=== PATIENT | male | born 1965 | race American Indian/Alaskan Native ===

== ENCOUNTER 2017-01-18 07:26 | Emergency (ER) | payer SELFPAY ==
[2017-01-18] MEDS ORDERED: Diphtheria,Pertussis(Acell),Tetanus Vaccine 0.5 ML Syringe IM ONE (07:45)
[2017-01-18] MEDS ORDERED: Lidocaine 1% 20 ML MDV INJECT ONE (07:45)
--- NOTE | 2017-01-18 07:47 | EDM.PDOC ---
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 Patient refused x-ray although he has painless range of motion of wrists elbows shoulders Denies head injury or loss of consciousness no fever nausea vomiting chills sweats no chest pain shortness breath headache dizziness palpitation about a urine symptoms ] Review of systems: As per history of present illness and below otherwise all systems reviewed and negative. Past medical history: As per history of present illness and as reviewed below otherwise noncontributory. Surgical history: As per history of present illness and as reviewed below otherwise noncontributory. Social history: No reported history of drug or alcohol abuse. Family history: As per history of present illness and as reviewed below otherwise noncontributory. Physical exam: HEENT: Atraumatic, normocephalic, pupils reactive, negative for conjunctival pallor or scleral icterus, mucous membranes moist, throat clear, neck supple, nontender, trachea midline. Lungs: Clear to auscultation, breath sounds equal bilaterally, chest nontender. Heart: S1S2, regular, negative for clicks, rubs, or JVD. Abdomen: Soft, nondistended, nontender. Negative for masses or hepatosplenomegaly. Negative for costovertebral tenderness. Pelvis: Stable nontender. Genitourinary: Deferred. Rectal: Deferred. Extremities: Atraumatic, negative for cords or calf pain. Neurovascular unremarkable. Neuro: Awake, alert, oriented. Cranial nerves II through XII unremarkable. Cerebellum unremarkable. Motor and sensory unremarkable throughout. Exam nonfocal. 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 - Related Data Allergies Allergy/AdvReac Type Severity Reaction Status Date / Time No Known Allergies Allergy Verified 01/18/17 07:42 Home Meds: Home Meds . [No Known Home Meds] 01/18/17 [History] ED ROS GENERAL - Review of Systems Review Of Systems: ROS reveals no pertinent complaints other than HPI. ED EXAM, SKIN/RASH Exam: See Below Course - Vital Signs Last Recorded V/S: Last Vital Signs Temp 36.1 C 01/18/17 07:42 Pulse 84 01/18/17 07:42 Resp 16 01/18/17 07:42 BP 132/97 H 01/18/17 07:42 Pulse Ox 97 01/18/17 07:42 - Orders/Labs/Meds Orders: Active Orders 24 hr Category Date Time Status Vaccines to be Administered [RC] PER UNIT ROUTINE Care 01/18/17 07:45 Active Meds: Medications Discontinued Medications Generic Name Dose Route Start Last Admin Trade Name Obed PRN Reason Stop Dose Admin Bacitracin 1 dose 01/18/17 08:21 Bacitracin Oint 1 Gm TOP 01/18/17 08:22 ONETIME ONE Diphtheria/Tetanus/Acell Pertussis 0.5 ml 01/18/17 07:45 01/18/17 08:04 Adacel IM 01/18/17 07:46 0.5 ml .ONCE ONE Administration Lidocaine HCl 20 ml 01/18/17 07:45 01/18/17 08:07 Xylocaine 1% INJECT 01/18/17 07:46 20 ml ONETIME ONE Administration Departure - Departure Time of Disposition: 08:24 Disposition: Home, Self-Care 01 Condition: Good Clinical Impression: Laceration - Discharge Information Referrals: PCP,None [Primary Care Provider] - Forms: ED Department Discharge Additional Instructions: Keep wound clean and dry for 48 hours Sutures out in 10 days Bacitracin Telfa Coban dressing changes needed Handout of grease diesel and solvents alert essentially left hand duty Follow-up with occupational health or primary care return for suture removal in 10 days Return if redness warmth or pus drainage should this develop or fever nausea vomiting chills sweats [facility] [address] [place] [id number] The following information is given to patients seen in the emergency department who are being discharged to home. This information is to outline your options for follow-up care. We provide all patients seen in our emergency department with a follow-up referral. The need for follow-up, as well as the timing and circumstances, are variable depending upon the specifics of your emergency department visit. If you don't have a primary care physician on staff, we will provide you with a referral. We always advise you to contact your personal physician following an emergency department visit to inform them of the circumstance of the visit and for follow-up with them and/or the need for any referrals to a consulting specialist. The emergency department will also refer you to a specialist when appropriate. This referral assures that you have the opportunity for follow-up care with a specialist. All of these measure are taken in an effort to provide you with optimal care, which includes your follow-up. Under all circumstances we always encourage you to contact your private physician who remains a resource for coordinating your care. When calling for follow-up care, please make the office aware that this follow-up is from your recent emergency room visit. If for any reason you are refused follow-up, please contact the [facility] emergency department at and asked to speak to the emergency department charge nurse. - My Orders Last 24 Hours: My Active Orders 01/18/17 07:45 Vaccines to be Administered [RC] PER UNIT ROUTINE - Assessment/Plan Last 24 Hours: My Active Orders 01/18/17 07:45 Vaccines to be Administered [RC] PER UNIT ROUTINE
[2017-01-18] MEDS ORDERED: Bacitracin Oint 1 GM U/D Packet TOP ONE (08:21)
== END 2017-01-18 08:48 | disposition home or self-care (01) ==
LOC: MW.ED 07:26
DX: S61.411A Laceration without foreign body of right hand, initial encounter (principal); Z23 Encounter for immunization; W01.0XXA Fall on same level from slipping, tripping and stumbling without subsequent striking against object, initial encounter
CPT/HCPCS: 12001; 90471; 90715; 99282; 99282-25

== ENCOUNTER 2017-10-17 09:05 | Inpatient (IN) | payer SELFPAY ==
--- NOTE | 2017-10-17 09:27 | EDM.PDOC ---
ED HPI GENERAL MEDICAL PROBLEM - General Chief Complaint: Lower Extremity Injury/Pain Stated Complaint: LT LEG SWOLLEN Time Seen by Provider: 10/17/17 09:26 Source of Information: Reports: Patient - History of Present Illness INITIAL COMMENTS - FREE TEXT/NARRATIVE: HISTORY AND PHYSICAL: History of present illness: []Patient presents with left lower extremity pain 8 out of 10 with ambulation has redness and swelling of the calf consistent with a cellulitis he has a history of bumping his leg while working in the yard several days ago now unable to bear weight due to pain No fever nausea vomiting chills sweats Review of systems: As per history of present illness and below otherwise all systems reviewed and negative. Past medical history: As per history of present illness and as reviewed below otherwise noncontributory. Surgical history: As per history of present illness and as reviewed below otherwise noncontributory. Social history: No reported history of drug or alcohol abuse. Family history: As per history of present illness and as reviewed below otherwise noncontributory. Physical exam: HEENT: Atraumatic, normocephalic, pupils reactive, negative for conjunctival pallor or scleral icterus, mucous membranes moist, throat clear, neck supple, nontender, trachea midline. Lungs: Clear to auscultation, breath sounds equal bilaterally, chest nontender. Heart: S1S2, regular, negative for clicks, rubs, or JVD. Abdomen: Soft, nondistended, nontender. Negative for masses or hepatosplenomegaly. Negative for costovertebral tenderness. Pelvis: Stable nontender. Genitourinary: Deferred. Rectal: Deferred. Extremities: Atraumatic, negative for cords or calf pain. Neurovascular unremarkable. Left lower extremityHip knee and ankle joints are unaffected he has redness warmth and pitting edema over the tibia and calf tenderness, skin redness is red and tender extending from the ankle to the knee but does not involve the joints or limb is neurovascularly intact Neuro: Awake, alert, oriented. Cranial nerves II through XII unremarkable. Cerebellum unremarkable. Motor and sensory unremarkable throughout. Exam nonfocal. Skin as per history of present illness otherwise unremarkable Diagnostics: [ CBC CMP and INR blood cultures 2No drainage for culture Tib-fib x-ray ] venous ultrasound left lower extremity Therapeutics: [] Impression: [ cellulitis left lower extremity ] Definitive disposition and diagnosis as appropriate pending reevaluation and review of above. Left Lower Leg Pain Score (Numeric/FACES): 10 - Related Data Allergies Allergy/AdvReac Type Severity Reaction Status Date / Time No Known Allergies Allergy Verified 10/17/17 09:17 Home Meds: Home Meds . [No Known Home Meds] 01/18/17 [History] Past Medical History - Past Health History Medical/Surgical History: Denies Medical/Surgical History Social & Family History - Family History Family Medical History: Noncontributory - Caffeine Use Caffeine Use: Reports: Coffee - Recreational Drug Use Recreational Drug Use: No Review of Systems - Review of Systems Review Of Systems: See Below ED EXAM, GENERAL - Physical Exam Exam: See Below Course - Vital Signs Last Recorded V/S: Last Vital Signs Temp 97.7 F 10/17/17 09:14 Pulse 77 10/17/17 10:19 Resp 18 10/17/17 10:19 BP 162/93 H 10/17/17 10:19 Pulse Ox 96 10/17/17 10:19 - Orders/Labs/Meds Orders: Active Orders 24 hr Category Date Time Status CULTURE BLOOD [BC] Stat Lab 10/17/17 09:25 Ordered CULTURE BLOOD [BC] Stat Lab 10/17/17 09:30 Received INR,PT,PROTHROMBIN TIME [COAG] Stat Lab 10/17/17 09:30 Received Clindamycin Phosphate [Cleocin] 300 mg Med 10/17/17 10:17 Ordered Sodium Chloride 0.9% [Normal Saline] 50 ml IV ONETIME Vancomycin [Vancocin] 1 gm Med 10/17/17 10:17 Ordered Sodium Chloride 0.9% [Normal Saline] 250 ml IV ONETIME Blood Culture x2 Reflex Set [OM.PC] Stat Oth 10/17/17 09:25 Ordered Medication Orders Clindamycin Phosphate 300 mg/ (Sodium Chloride) 52 mls @ 100 mls/hr IV ONETIME ONE Stop: 10/17/17 10:48 Vancomycin HCl 1 gm/ Sodium (Chloride) 250 mls @ 250 mls/hr IV ONETIME ONE Stop: 10/17/17 11:16 Labs: Laboratory Tests 10/17/17 10/17/17 Range/Units 09:30 09:30 WBC 7.29 (4.0-11.0) K/uL RBC 4.93 (4.50-5.90) M/uL Hgb 14.4 (13.0-17.0) g/dL Hct 43.5 (38.0-50.0) % MCV 88.2 (80.0-98.0) fL MCH 29.2 (27.0-32.0) pg MCHC 33.1 (31.0-37.0) g/dL RDW Std Deviation 45.7 (28.0-62.0) fl RDW Coeff of Julianna 14 (11.0-15.0) % Plt Count 274 (150-400) K/uL MPV 9.50 (7.40-12.00) fL Neut % (Auto) 64.5 (48.0-80.0) % Lymph % (Auto) 23.2 (16.0-40.0) % [place] % (Auto) 6.9 (0.0-15.0) % Eos % (Auto) 4.9 (0.0-7.0) % Baso % (Auto) 0.5 (0.0-1.5) % Neut # (Auto) 4.7 (1.4-5.7) K/uL Lymph # (Auto) 1.7 (0.6-2.4) K/uL [place] # (Auto) 0.5 (0.0-0.8) K/uL Eos # (Auto) 0.4 (0.0-0.7) K/uL Baso # (Auto) 0.0 (0.0-0.1) K/uL Nucleated RBC % 0.0 /100WBC Nucleated RBCs # 0 K/uL Sodium 139 (136-148) mmol/L Potassium 3.9 (3.5-5.1) mmol/L Chloride 103 (98-107) mmol/L Carbon Dioxide 29.7 (21.0-32.0) mmol/L BUN 11 (7.0-18.0) mg/dL Creatinine 1.0 (0.8-1.3) mg/dL Est Cr Clr Drug Dosing 80.79 mL/min Estimated GFR (MDRD) > 60.0 ml/min Glucose 187 H (74-106) mg/dL Calcium 8.9 (8.5-10.1) mg/dL Total Bilirubin 0.2 (0.2-1.0) mg/dL AST 17 (15-37) IU/L ALT 51 (14-63) IU/L Alkaline Phosphatase 109 (46-116) U/L Total Protein 7.5 (6.4-8.2) g/dL Albumin 3.2 L (3.4-5.0) g/dL Globulin 4.3 H (2.0-3.5) g/dL Albumin/Globulin Ratio 0.7 L (1.3-2.8) Meds: Medications Generic Name Dose Route Start Last Admin Trade Name Freq PRN Reason Stop Dose Admin Clindamycin Phosphate 300 mg/ 52 mls @ 100 mls/hr 10/17/17 10:17 Sodium Chloride IV 10/17/17 10:48 ONETIME ONE Vancomycin HCl 1 gm/ Sodium 250 mls @ 250 mls/hr 10/17/17 10:17 Chloride IV 10/17/17 11:16 ONETIME ONE Departure - Departure Time of Disposition: 10:22 Disposition: Admitted As Inpatient 65 Condition: Fair Clinical Impression: Cellulitis - Discharge Information Referrals: PCP,None [Primary Care Provider] - Forms: ED Department Discharge - My Orders Last 24 Hours: My Active Orders 10/17/17 09:25 CULTURE BLOOD [BC] Stat Blood Culture x2 Reflex Set [OM.PC] Stat 10/17/17 09:30 CULTURE BLOOD [BC] Stat INR,PT,PROTHROMBIN TIME [COAG] Stat 10/17/17 10:17 Clindamycin Phosphate [Cleocin] 300 mg Sodium Chloride 0.9% [Normal Saline] 50 ml IV ONETIME Vancomycin [Vancocin] 1 gm Sodium Chloride 0.9% [Normal Saline] 250 ml IV ONETIME - Assessment/Plan Last 24 Hours: My Active Orders 10/17/17 09:25 CULTURE BLOOD [BC] Stat Blood Culture x2 Reflex Set [OM.PC] Stat 10/17/17 09:30 CULTURE BLOOD [BC] Stat INR,PT,PROTHROMBIN TIME [COAG] Stat 10/17/17 10:17 Clindamycin Phosphate [Cleocin] 300 mg Sodium Chloride 0.9% [Normal Saline] 50 ml IV ONETIME Vancomycin [Vancocin] 1 gm Sodium Chloride 0.9% [Normal Saline] 250 ml IV ONETIME
--- NOTE | 2017-10-17 10:02 | US ---
ULTRASOUND EXAMINATION OF the left lower extremity WITH DOPPLER HISTORY: Pain FINDINGS: Examination of the left leg was performed from the groin to the calf region. All visualized segments including common femoral, proximal greater saphenous, superficial femoral, popliteal and calf veins appear patent with good compressibility and augmentation. There is no evidence of deep vein thrombos is. Mildly prominent, likely reactive, left inguinal lymph nodes noted. IMPRESSION: No evidence of a DVT.
[2017-10-17 10:04] LABS: CHLORIDE,CL 103 mmol/L (98-107); SODIUM,NA 139 mmol/L (136-148)
--- NOTE | 2017-10-17 10:14 | CR ---
EXAMINATION: Left tibia and fibula HISTORY: Pain COMPARISON: None TECHNIQUE: AP and lateral views FINDINGS: There is no acute osseous abnormality, dislocation, or fracture. Bone mineralization and bret int spaces appear preserved. Mild osteophyte formation within the left knee. Mild generalized soft ti ssue swelling without evidence of subcutaneous gas. IMPRESSION: Generalized soft tissue swelling without an acute osseous abnormality.
[2017-10-17] MEDS ORDERED: Clindamycin Phosphate in D5W 50 ML IV ONE (10:24)
[2017-10-17] MEDS ORDERED: Clindamycin Phosphate 300 MG in Dextrose 5% in Water 50 ML IV ONE ×2 (10:25)
[2017-10-17] MEDS: Sodium Chloride 0.9% 1,000 ML IV SCH (10:40)
[2017-10-17] MEDS ORDERED: Acetaminophen 325 MG Tab PO PRN (11:23)
[2017-10-17] MEDS ORDERED: Diphtheria,Pertussis(Acell),Tetanus Vaccine 0.5 ML Syringe IM ONE (14:31)
--- NOTE | 2017-10-17 14:32 | PCM.HP ---
H&P History of Present Illness - General Date of Service: 10/17/17 Admit Problem/Dx: Admission Diagnosis/Problem Admission Diagnosis/Problem Cellulitis Patient 51 years old woman presented to hospital because of redness and swelling and pain of the left lower extremities plantar and left calf pain after he accidentally hurt himself with a metal marcellus at work the day before. Patient drinks alcohol,4- 5 beers a day 4-7 days in a week, after he comes home from work. Source of Information: Patient - History of Present Illness Onset of Symptoms: Reports: Today Duration of Symptoms: Reports: Hour(s): Location: Reports: Lower Extremity, Left Quality: Reports: Ache Left Lower Leg Pain Score (Numeric/FACES): 10 - Related Data Allergies/Adverse Reactions: Allergies Allergy/AdvReac Type Severity Reaction Status Date / Time No Known Allergies Allergy Verified 10/17/17 09:17 Home Medications: Home Meds . [No Known Home Meds] 01/18/17 [History] Past Medical History - Past Health History Medical/Surgical History: Denies Medical/Surgical History Dermatologic History: Reports: Cellulitis Social & Family History - Family History Family Medical History: Noncontributory - Tobacco Use Smoking Status *Q: Never Smoker Second Hand Smoke Exposure: No - Caffeine Use Caffeine Use: Reports: Coffee - Alcohol Use Days Per Week of Alcohol Use: 5 Number of Drinks Per Day: 2 Total Drinks Per Week: 10 Date of Last Drink: 10/09/17 - Recreational Drug Use Recreational Drug Use: No H&P Review of Systems - Review of Systems: Review Of Systems: See Below General: Reports: No Symptoms HEENT: Reports: No Symptoms Pulmonary: Reports: No Symptoms Cardiovascular: Reports: No Symptoms Gastrointestinal: Reports: Distension Genitourinary: Reports: No Symptoms Musculoskeletal: Reports: No Symptoms Skin: Reports: No Symptoms Exam - Exam Exam: See Below - Vital Signs Vital Signs: Last Vital Signs Temp 99.4 F 10/17/17 11:23 Pulse 72 10/17/17 11:23 Resp 18 10/17/17 11:23 BP 159/87 H 10/17/17 11:23 Pulse Ox 97 10/17/17 11:23 Weight: 291 lb 1 oz - Exam General: Alert, Oriented HEENT: Conjunctiva Clear, EACs Clear Neck: Supple, Trachea Midline Lungs: Clear to Auscultation, Normal Respiratory Effort Cardiovascular: Regular Rate, Regular Rhythm, Normal S1, Normal S2 GI/Abdominal Exam: Soft, Non-Tender, No Organomegaly, No Mass, Distended, Hernia (umbilical) Back Exam: Normal Inspection Extremities: Normal Inspection Skin: Warm, Other (skin erythema left lower extremity) Neurological: Cranial Nerves Intact Neuro Extensive - Mental Status: Alert, Oriented x3 Neuro Extensive - Motor, Sensory, Reflexes: CN II-XII Intact - Patient Data Lab Results Last 24 hrs: Laboratory Results - last 24 hr 10/17/17 10/17/17 10/17/17 Range/Units 09:30 09:30 09:30 WBC 7.29 (4.0-11.0) K/uL RBC 4.93 (4.50-5.90) M/uL Hgb 14.4 (13.0-17.0) g/dL Hct 43.5 (38.0-50.0) % MCV 88.2 (80.0-98.0) fL MCH 29.2 (27.0-32.0) pg MCHC 33.1 (31.0-37.0) g/dL RDW Std Deviation 45.7 (28.0-62.0) fl RDW Coeff of Julianna 14 (11.0-15.0) % Plt Count 274 (150-400) K/uL MPV 9.50 (7.40-12.00) fL Neut % (Auto) 64.5 (48.0-80.0) % Lymph % (Auto) 23.2 (16.0-40.0) % [place] % (Auto) 6.9 (0.0-15.0) % Eos % (Auto) 4.9 (0.0-7.0) % Baso % (Auto) 0.5 (0.0-1.5) % Neut # (Auto) 4.7 (1.4-5.7) K/uL Lymph # (Auto) 1.7 (0.6-2.4) K/uL [place] # (Auto) 0.5 (0.0-0.8) K/uL Eos # (Auto) 0.4 (0.0-0.7) K/uL Baso # (Auto) 0.0 (0.0-0.1) K/uL Nucleated RBC % 0.0 /100WBC Nucleated RBCs # 0 K/uL INR 0.95 Sodium 139 (136-148) mmol/L Potassium 3.9 (3.5-5.1) mmol/L Chloride 103 (98-107) mmol/L Carbon Dioxide 29.7 (21.0-32.0) mmol/L BUN 11 (7.0-18.0) mg/dL Creatinine 1.0 (0.8-1.3) mg/dL Est Cr Clr Drug Dosing 80.79 mL/min Estimated GFR (MDRD) > 60.0 ml/min Glucose 187 H (74-106) mg/dL Calcium 8.9 (8.5-10.1) mg/dL Total Bilirubin 0.2 (0.2-1.0) mg/dL AST 17 (15-37) IU/L ALT 51 (14-63) IU/L Alkaline Phosphatase 109 (46-116) U/L Total Protein 7.5 (6.4-8.2) g/dL Albumin 3.2 L (3.4-5.0) g/dL Globulin 4.3 H (2.0-3.5) g/dL Albumin/Globulin Ratio 0.7 L (1.3-2.8) Result Diagrams: 10/17/17 09:30 10/17/17 09:30 - Problem List (1) Skin abrasion SNOMED Code(s): 714760290, 196871357, 228738849 ICD Code: T14.8XXA - OTHER INJURY OF UNSPECIFIED BODY REGION, INITIAL ENCOUNTER Status: Acute Current Visit: Yes (2) Cellulitis SNOMED Code(s): 565071409 ICD Code: L03.90 - CELLULITIS, UNSPECIFIED Status: Acute Current Visit: Yes (3) Alcohol abuse SNOMED Code(s): 31437226 ICD Code: F10.10 - ALCOHOL ABUSE, UNCOMPLICATED Status: Acute Current Visit: Yes (4) Distended abdomen SNOMED Code(s): 48213413 ICD Code: R14.0 - ABDOMINAL DISTENSION (GASEOUS) Status: Acute Current Visit: Yes (5) Umbilical hernia SNOMED Code(s): 163544654 ICD Code: K42.9 - UMBILICAL HERNIA WITHOUT OBSTRUCTION OR GANGRENE Status: Acute Current Visit: Yes (6) Morbid obesity with BMI of 45.0-49.9, adult SNOMED Code(s): 175223377 ICD Code: E66.01 - MORBID (SEVERE) OBESITY DUE TO EXCESS CALORIES; Z68.42 - BODY MASS INDEX (BMI) 45.0-49.9, ADULT Status: Acute Current Visit: Yes Problem List Initiated/Reviewed/Updated: Yes Orders Last 24hrs: Active Orders 24 hr Category Date Time Status Admission Status [Patient Status] [ADT] Stat ADT 10/17/17 10:23 Active Up ad Trina [RC] ASDIRECTED Care 10/17/17 11:23 Active VTE/DVT Education [RC] PER UNIT ROUTINE Care 10/17/17 11:23 Active Vaccines to be Administered [RC] PER UNIT ROUTINE Care 10/17/17 14:32 Active Vital Signs [RC] Q4H Care 10/17/17 11:23 Active Heart Healthy Diet [DIET] Diet 10/17/17 Lunch Active Abdomen Comp [US] Routine Exams 10/17/17 14:31 Ordered B-TYPE NATRIURETIC PEPTIDE,BNP [CHEM] Routine Lab 10/17/17 14:30 Ordered BASIC METABOLIC PANEL,BMP [CHEM] AM Lab 10/18/17 05:11 Ordered CBC WITH AUTO DIFF [HEME] AM Lab 10/18/17 05:11 Ordered CULTURE BLOOD [BC] Stat Lab 10/17/17 09:30 Received CULTURE BLOOD [BC] Stat Lab 10/17/17 10:15 Received VANCOMYCIN TROUGH [CHEM] Timed Lab 10/19/17 09:30 Ordered Acetaminophen [Tylenol] Med 10/17/17 11:23 Active 650 mg PO Q4H PRN Acetaminophen/HYDROcodone [[place] 325-7.5 MG] Med 10/17/17 12:42 Active 1 tab PO Q4H PRN Diphth,Pertuss(Acell),Tet Vac [Adacel] Med 10/17/17 14:31 Once 0.5 ml IM .ONCE ONE Piperacillin/Tazobactam [Piperacil-Tazobact] 4.5 gm Med 10/17/17 13:45 Active Sodium Chloride 0.9% [Normal Saline] 100 ml IV Q6H Sodium Chloride 0.9% [Normal Saline] 1,000 ml Med 10/17/17 10:30 Active IV STAT Vancomycin 2,000 mg Med 10/17/17 21:00 Active Sodium Chloride 0.9% [Normal Saline] 500 ml IV Q12H Vancomycin Pharmacy to Dose [Pharmacy to Dose - Med 10/17/17 11:30 Active Vancomycin] See Dose Instructions .XX ASDIRECTED Blood Culture x2 Reflex Set [OM.PC] Stat Oth 10/17/17 09:25 Ordered Sequential Compression Device [OM.PC] Per Unit Routine Oth 10/17/17 11:26 Ordered Resuscitation Status Routine Resus Stat 10/17/17 11:23 Ordered Medication Orders Acetaminophen (Tylenol) 650 mg PO Q4H PRN PRN Reason: Pain (Mild 1-3)/fever Last Admin: 10/17/17 12:05 Dose: 650 mg Hydrocodone Bitart/Acetaminophen ([place] 325-7.5 Mg) 1 tab PO Q4H PRN PRN Reason: Pain Diphtheria/Tetanus/Acell Pertussis (Adacel) 0.5 ml IM .ONCE ONE Stop: 10/17/17 14:32 Sodium Chloride (Normal Saline) 1,000 mls @ 125 mls/hr IV STAT ARELY Last Admin: 10/17/17 10:40 Dose: 125 mls/hr Vancomycin HCl 2,000 mg/ (Sodium Chloride) 500 mls @ 250 mls/hr IV Q12H ARELY Piperacillin Sod/Tazobactam (Sod 4.5 gm/ Sodium Chloride) 100 mls @ 100 mls/hr IV Q6H ARELY Vancomycin HCl (Pharmacy To Dose - Vancomycin) 0 dose .XX ASDIRECTED ARELY Assessment/Plan Comment:: will admit patient to observation will start patient onIv fluids , Vancomycin pharmacy to dose and Zosyn 4.5 g every 6 hours. We will follow-up blood cultures. will give patient Tdap vaccine for alcohol abuse will put patient in telemetry and put patient on CIWA protocol Thiamine 100 mg by mouth daily and folic acid 0.4 mg by mouth daily for abdomen distention and alcohol abuse will order abdominal ultrasound Alcohol abuse - patient was counseled for more than 5 min to stop drinking alcohol Morbid obesity - patient counseled to loose weight
[2017-10-17] MEDS: Piperacillin/Tazobactam 4.5 GM in Sodium Chloride 0.9% 100 ML IV SCH ×2 (15:18→22:26)
[2017-10-17] MEDS: Acetaminophen/HYDROcodone 325-7.5 MG Tab PO PRN (15:21)
[2017-10-17] MEDS ORDERED: LORazepam 2 MG/ML SDV IVPUSH PRN (18:13)
[2017-10-18] MEDS: Sodium Chloride 0.9% 1,000 ML IV SCH ×2 (02:20→15:28)
[2017-10-18] MEDS: Piperacillin/Tazobactam 4.5 GM in Sodium Chloride 0.9% 100 ML IV SCH ×4 (02:21→20:00)
[2017-10-18 06:41] LABS: CHLORIDE,CL 101 mmol/L (98-107); SODIUM,NA 136 mmol/L (136-148)
[2017-10-18] MEDS: Acetaminophen/HYDROcodone 325-7.5 MG Tab PO PRN (15:34)
--- NOTE | 2017-10-18 16:13 | PCM.PN ---
- General Info Date of Service: 10/18/17 Admission Dx/Problem (Free Text): has improved right lower extremity erythema and decreased swelling Functional Status: Reports: Pain Controlled - Review of Systems General: Reports: No Symptoms Pulmonary: Reports: No Symptoms Cardiovascular: Reports: No Symptoms Gastrointestinal: Reports: No Symptoms Genitourinary: Reports: No Symptoms Musculoskeletal: Reports: No Symptoms Skin: Reports: No Symptoms, Other (erythema , fading , less intense color below the knee) Neurological: Reports: No Symptoms Psychiatric: Reports: No Symptoms - Patient Data Vitals - Most Recent: Last Vital Signs Temp 99.6 F 10/18/17 12:00 Pulse 83 10/18/17 12:00 Resp 18 10/18/17 12:00 BP 168/82 H 10/18/17 12:00 Pulse Ox 94 L 10/18/17 12:00 Weight - Most Recent: 291 lb 1 oz I&O - Last 24 Hours: Intake & Output 10/18/17 10/18/17 10/18/17 06:59 14:59 22:59 Intake Total 4629 Output Total 1999 Balance 2629 Lab Results Last 24 Hours: Laboratory Results - last 24 hr 10/18/17 10/18/17 Range/Units 06:15 06:15 WBC 8.44 (4.0-11.0) K/uL RBC 5.04 (4.50-5.90) M/uL Hgb 14.7 (13.0-17.0) g/dL Hct 44.7 (38.0-50.0) % MCV 88.7 (80.0-98.0) fL MCH 29.2 (27.0-32.0) pg MCHC 32.9 (31.0-37.0) g/dL RDW Std Deviation 46.3 (28.0-62.0) fl RDW Coeff of Julianna 14 (11.0-15.0) % Plt Count 266 (150-400) K/uL MPV 9.70 (7.40-12.00) fL Neut % (Auto) 65.6 (48.0-80.0) % Lymph % (Auto) 25.2 (16.0-40.0) % Irion % (Auto) 4.5 (0.0-15.0) % Eos % (Auto) 4.3 (0.0-7.0) % Baso % (Auto) 0.4 (0.0-1.5) % Neut # (Auto) 5.5 (1.4-5.7) K/uL Lymph # (Auto) 2.1 (0.6-2.4) K/uL Irion # (Auto) 0.4 (0.0-0.8) K/uL Eos # (Auto) 0.4 (0.0-0.7) K/uL Baso # (Auto) 0.0 (0.0-0.1) K/uL Nucleated RBC % 0.0 /100WBC Nucleated RBCs # 0 K/uL Sodium 136 (136-148) mmol/L Potassium 4.6 (3.5-5.1) mmol/L Chloride 101 (98-107) mmol/L Carbon Dioxide 31.5 (21.0-32.0) mmol/L BUN 13 (7.0-18.0) mg/dL Creatinine 1.2 (0.8-1.3) mg/dL Est Cr Clr Drug Dosing 67.32 mL/min Estimated GFR (MDRD) > 60.0 ml/min Glucose 161 H (74-106) mg/dL Calcium 9.6 (8.5-10.1) mg/dL Dionicio Results Last 24 Hours: Microbiology 10/17/17 10:15 Aerobic Blood Culture - Preliminary Blood - Venous - Lab Draw NO GROWTH AFTER 1 DAY Anaerobic Blood Culture - Preliminary NO GROWTH AFTER 1 DAY 10/17/17 09:30 Aerobic Blood Culture - Preliminary Blood - Venous NO GROWTH AFTER 1 DAY Anaerobic Blood Culture - Preliminary NO GROWTH AFTER 1 DAY Med Orders - Current: Current Medications Acetaminophen (Tylenol) 650 mg PO Q4H PRN PRN Reason: Pain (Mild 1-3)/fever Last Admin: 10/17/17 12:05 Dose: 650 mg Hydrocodone Bitart/Acetaminophen ([place] 325-7.5 Mg) 1 tab PO Q4H PRN PRN Reason: Pain Last Admin: 10/18/17 15:34 Dose: 1 tab Sodium Chloride (Normal Saline) 1,000 mls @ 125 mls/hr IV STAT [facility] Last Admin: 10/18/17 15:28 Dose: 125 mls/hr Vancomycin HCl 2,000 mg/ (Sodium Chloride) 500 mls @ 250 mls/hr IV Q12H [facility] Last Admin: 10/18/17 06:55 Dose: 250 mls/hr Piperacillin Sod/Tazobactam (Sod 4.5 gm/ Sodium Chloride) 100 mls @ 100 mls/hr IV Q6H [facility] Last Admin: 10/18/17 12:52 Dose: 100 mls/hr Lorazepam (Ativan) 0 mg IVPUSH Q4H PRN; Protocol PRN Reason: anxiety , agitation Vancomycin HCl (Pharmacy To Dose - Vancomycin) 0 dose .XX ASDIRECTED [facility] Discontinued Medications Diphtheria/Tetanus/Acell Pertussis (Adacel) 0.5 ml IM .ONCE ONE Stop: 10/17/17 14:32 Last Admin: 10/17/17 17:52 Dose: 0.5 ml Clindamycin Phosphate 300 mg/ (Sodium Chloride) 52 mls @ 100 mls/hr IV ONETIME ONE Stop: 10/17/17 10:48 Last Admin: 10/17/17 10:50 Dose: Not Given Vancomycin HCl 1 gm/ Sodium (Chloride) 250 mls @ 250 mls/hr IV ONETIME ONE Stop: 10/17/17 11:16 Last Admin: 10/17/17 10:41 Dose: 250 mls/hr Clindamycin Phosphate 300 mg/ (Dextrose/Water) 52 mls @ 100 mls/hr IV ONETIME ONE Stop: 10/17/17 10:48 Last Admin: 10/17/17 11:50 Dose: 100 mls/hr Clindamycin Phosphate (Cleocin In D5w) Confirm Administered Dose 50 mls @ as directed IV .STK-MED ONE Stop: 10/17/17 10:25 Last Admin: 10/17/17 10:50 Dose: Not Given - Exam General: Alert, Oriented HEENT: Pupils Equal, Pupils Reactive Neck: Supple, Trachea Midline Lungs: Clear to Auscultation, Normal Respiratory Effort Cardiovascular: Regular Rate, Regular Rhythm, No Murmurs GI/Abdominal Exam: Normal Bowel Sounds, Soft, Non-Tender, No Organomegaly Back Exam: Normal Inspection Extremities: Pedal Edema, Redness (rt lower extremity) - Problem List & Annotations (1) Skin abrasion SNOMED Code(s): 678418914, 170665699, 206151648 Code(s): T14.8XXA - OTHER INJURY OF UNSPECIFIED BODY REGION, INITIAL ENCOUNTER Status: Acute Current Visit: Yes (2) Cellulitis SNOMED Code(s): 654953082 Code(s): L03.90 - CELLULITIS, UNSPECIFIED Status: Acute Current Visit: Yes Qualifiers: Site of cellulitis: extremity Site of cellulitis of extremity: lower extremity Laterality: left Qualified Code(s): L03.116 - Cellulitis of left lower limb (3) Alcohol abuse SNOMED Code(s): 74176756 Code(s): F10.10 - ALCOHOL ABUSE, UNCOMPLICATED Status: Acute Current Visit: Yes (4) Distended abdomen SNOMED Code(s): 27961707 Code(s): R14.0 - ABDOMINAL DISTENSION (GASEOUS) Status: Acute Current Visit: Yes (5) Umbilical hernia SNOMED Code(s): 212766681 Code(s): K42.9 - UMBILICAL HERNIA WITHOUT OBSTRUCTION OR GANGRENE Status: Acute Current Visit: Yes (6) Morbid obesity with BMI of 45.0-49.9, adult SNOMED Code(s): 983446141 Code(s): E66.01 - MORBID (SEVERE) OBESITY DUE TO EXCESS CALORIES; Z68.42 - BODY MASS INDEX (BMI) 45.0-49.9, ADULT Status: Acute Current Visit: Yes - Problem List Review Problem List Initiated/Reviewed/Updated: Yes - My Orders Last 24 Hours: My Active Orders 10/17/17 18:00 Vancomycin 2,000 mg Sodium Chloride 0.9% [Normal Saline] 500 ml IV Q12H 10/17/17 18:12 Telemetry Monitoring [Cardiac Monitoring] [RC] . DIRECTED 10/17/17 18:13 LORazepam [Ativan] See Protocol IVPUSH Q4H PRN 10/17/17 18:14 CIWAA Assessment [RC] Q4H 10/19/17 09:30 VANCOMYCIN TROUGH [CHEM] Timed - Plan Plan:: Continue onIv fluids , Vancomycin pharmacy to dose and Zosyn 4.5 g every 6 hours. blood cultures negative day 1 . for alcohol abuse will put patient in telemetry and put patient on CIWA protocol Thiamine 100 mg by mouth daily and folic acid 0.4 mg by mouth daily for abdomen distention and alcohol abuse will order abdominal ultrasound Alcohol abuse - patient was counseled for more than 5 min to stop drinking alcohol Morbid obesity - patient counseled to loose weight
[2017-10-18] MEDS ORDERED: Folic Acid 1 MG Tab PO SCH (21:00)
[2017-10-18] MEDS ORDERED: Thiamine 100 MG Tab PO SCH (21:00)
[2017-10-19] MEDS ORDERED: Sodium Chloride 0.9% 100 ML ONE (01:17)
[2017-10-19] MEDS: Piperacillin/Tazobactam 4.5 GM in Sodium Chloride 0.9% 100 ML IV SCH ×3 (02:45→12:52)
[2017-10-19 06:57] LABS: CHLORIDE,CL 100 mmol/L (98-107); SODIUM,NA 134 mmol/L (136-148)
[2017-10-19] MEDS ORDERED: Insulin Aspart 100 Units/ML 3 ML Pen SUBCUT SCH (11:30)
--- NOTE | 2017-10-19 11:33 | PCM.DCSUM1 ---
Discharge Summary - Hospital Course Diagnosis: Stroke: No - Discharge Data Discharge Disposition: Home, Self-Care 01 Condition: Fair - Discharge Diagnosis/Problem(s) (1) Skin abrasion SNOMED Code(s): 536601427, 062248312, 778539333 ICD Code: T14.8XXA - OTHER INJURY OF UNSPECIFIED BODY REGION, INITIAL ENCOUNTER Status: Acute Current Visit: Yes (2) Cellulitis SNOMED Code(s): 404455045 ICD Code: L03.90 - CELLULITIS, UNSPECIFIED Status: Acute Current Visit: Yes Qualifiers: Site of cellulitis: extremity Site of cellulitis of extremity: lower extremity Laterality: left Qualified Code(s): L03.116 - Cellulitis of left lower limb (3) Alcohol abuse SNOMED Code(s): 42326543 ICD Code: F10.10 - ALCOHOL ABUSE, UNCOMPLICATED Status: Acute Current Visit: Yes (4) Distended abdomen SNOMED Code(s): 42065354 ICD Code: R14.0 - ABDOMINAL DISTENSION (GASEOUS) Status: Acute Current Visit: Yes (5) Umbilical hernia SNOMED Code(s): 580972619 ICD Code: K42.9 - UMBILICAL HERNIA WITHOUT OBSTRUCTION OR GANGRENE Status: Acute Current Visit: Yes (6) Morbid obesity with BMI of 45.0-49.9, adult SNOMED Code(s): 007059803 ICD Code: E66.01 - MORBID (SEVERE) OBESITY DUE TO EXCESS CALORIES; Z68.42 - BODY MASS INDEX (BMI) 45.0-49.9, ADULT Status: Acute Current Visit: Yes (7) Diabetes mellitus SNOMED Code(s): 61183015 ICD Code: E11.9 - TYPE 2 DIABETES MELLITUS WITHOUT COMPLICATIONS Status: Acute Current Visit: Yes Qualifiers: Diabetes mellitus type: type 2 (8) Hepatic steatosis SNOMED Code(s): 814746763 ICD Code: K76.0 - FATTY (CHANGE OF) LIVER, NOT ELSEWHERE CLASSIFIED Status : Acute Current Visit: Yes (9) Hypertension SNOMED Code(s): 51994279 ICD Code: I10 - ESSENTIAL (PRIMARY) HYPERTENSION Status: Acute Current Visit: Yes Qualifiers: Hypertension type: essential hypertension Qualified Code(s): I10 - Essential (primary) hypertension - Patient Instructions Diet: Diabetic Diet Driving: May Drive Today Showering/Bathing: May Shower Other/Special Instructions: stop drinking , check your cholesterol , you have fatty liver , f/up with pCP - Discharge Plan Prescriptions/Med Rec: Lisinopril/Hydrochlorothiazide [Lisinopril-HCTZ 10-12.5 MG] 1 tab PO DAILY #60 tablet metFORMIN HCl [Metformin HCl ER] 500 mg PO DAILY #30 tab.er.24 Sulfamethoxazole/Trimethoprim [Bactrim Ds Tablet] 1 each PO BID #20 tablet Home Medications: Home Meds Lisinopril/Hydrochlorothiazide [Lisinopril-HCTZ 10-12.5 MG] 1 tab PO DAILY #60 tablet 10/19/17 [Rx] Sulfamethoxazole/Trimethoprim [Bactrim Ds Tablet] 1 each PO BID #20 tablet 10/19 [Rx] metFORMIN HCl [Metformin HCl ER] 500 mg PO DAILY #30 tab.er.24 10/19/17 [Rx] Patient Handouts: Cellulitis, Adult, Jyuk-wf-Weyo, Type 2 Diabetes Mellitus, Self Care, Adult, Gnvx-lh-[id number], Sulfamethoxazole; Trimethoprim, SMX-TMP tablets , Metronidazole tablets or capsules, Diabetes Mellitus and Nutrition - Patient Data Vitals - Most Recent: Last Vital Signs Temp 97.5 F 10/19/17 08:00 Pulse 80 10/19/17 08:00 Resp 17 10/19/17 08:00 BP 143/111 H 10/19/17 08:00 Pulse Ox 95 10/19/17 08:00 Weight - Most Recent: 291 lb 1 oz I&O - Last 24 hours: Intake & Output 10/18/17 10/19/17 10/19/17 22:59 06:59 14:59 Intake Total 1150 1300 Output Total 700 Balance 450 1300 Lab Results - Last 24 hrs: Laboratory Results - last 24 hr 10/19/17 10/19/17 10/19/17 Range/Units 06:10 06:10 06:10 WBC 8.57 (4.0-11.0) K/uL RBC 5.00 (4.50-5.90) M/uL Hgb 14.4 (13.0-17.0) g/dL Hct 44.0 (38.0-50.0) % MCV 88.0 (80.0-98.0) fL MCH 28.8 (27.0-32.0) pg MCHC 32.7 (31.0-37.0) g/dL RDW Std Deviation 45.6 (28.0-62.0) fl RDW Coeff of Julianna 14 (11.0-15.0) % Plt Count 265 (150-400) K/uL MPV 9.90 (7.40-12.00) fL Nucleated RBC % 0.0 /100WBC Nucleated RBCs # 0 K/uL Sodium 134 L (136-148) mmol/L Potassium 4.4 (3.5-5.1) mmol/L Chloride 100 (98-107) mmol/L Carbon Dioxide 29.6 (21.0-32.0) mmol/L BUN 14 (7.0-18.0) mg/dL Creatinine 1.2 (0.8-1.3) mg/dL Est Cr Clr Drug Dosing 67.32 mL/min Estimated GFR (MDRD) > 60.0 ml/min Glucose 238 H (74-106) mg/dL POC Glucose (60-110) mg/dL Hemoglobin A1c 7.8 H (4.5-6.2) % Calcium 9.4 (8.5-10.1) mg/dL Total Bilirubin 0.4 (0.2-1.0) mg/dL AST 16 (15-37) IU/L ALT 48 (14-63) IU/L Alkaline Phosphatase 93 (46-116) U/L Total Protein 7.4 (6.4-8.2) g/dL Albumin 3.2 L (3.4-5.0) g/dL Globulin 4.2 H (2.0-3.5) g/dL Albumin/Globulin Ratio 0.8 L (1.3-2.8) 10/19/17 Range/Units 11:22 WBC (4.0-11.0) K/uL RBC (4.50-5.90) M/uL Hgb (13.0-17.0) g/dL Hct (38.0-50.0) % MCV (80.0-98.0) fL MCH (27.0-32.0) pg MCHC (31.0-37.0) g/dL RDW Std Deviation (28.0-62.0) fl RDW Coeff of Julianna (11.0-15.0) % Plt Count (150-400) K/uL MPV (7.40-12.00) fL Nucleated RBC % /100WBC Nucleated RBCs # K/uL Sodium (136-148) mmol/L Potassium (3.5-5.1) mmol/L Chloride (98-107) mmol/L Carbon Dioxide (21.0-32.0) mmol/L BUN (7.0-18.0) mg/dL Creatinine (0.8-1.3) mg/dL Est Cr Clr Drug Dosing mL/min Estimated GFR (MDRD) ml/min Glucose (74-106) mg/dL POC Glucose 124 H (60-110) mg/dL Hemoglobin A1c (4.5-6.2) % Calcium (8.5-10.1) mg/dL Total Bilirubin (0.2-1.0) mg/dL AST (15-37) IU/L ALT (14-63) IU/L Alkaline Phosphatase (46-116) U/L Total Protein (6.4-8.2) g/dL Albumin (3.4-5.0) g/dL Globulin (2.0-3.5) g/dL Albumin/Globulin Ratio (1.3-2.8) SYEDA Results - Last 24 hrs: Microbiology 10/17/17 10:15 Aerobic Blood Culture - Preliminary Blood - Venous - Lab Draw NO GROWTH AFTER 2 DAYS Anaerobic Blood Culture - Preliminary NO GROWTH AFTER 2 DAYS 10/17/17 09:30 Aerobic Blood Culture - Preliminary Blood - Venous NO GROWTH AFTER 2 DAYS Anaerobic Blood Culture - Preliminary NO GROWTH AFTER 2 DAYS Med Orders - Current: Current Medications Acetaminophen (Tylenol) 650 mg PO Q4H PRN PRN Reason: Pain (Mild 1-3)/fever Last Admin: 10/17/17 12:05 Dose: 650 mg Hydrocodone Bitart/Acetaminophen ([place] 325-7.5 Mg) 1 tab PO Q4H PRN PRN Reason: Pain Last Admin: 10/18/17 15:34 Dose: 1 tab Folic Acid (Folic Acid) 1 mg PO BEDTIME [facility] Last Admin: 10/18/17 22:00 Dose: 1 mg Vancomycin HCl 2,000 mg/ (Sodium Chloride) 500 mls @ 250 mls/hr IV Q12H [facility] Last Admin: 10/19/17 05:12 Dose: 250 mls/hr Piperacillin Sod/Tazobactam (Sod 4.5 gm/ Sodium Chloride) 100 mls @ 100 mls/hr IV Q6H [facility] Last Admin: 10/19/17 08:32 Dose: 100 mls/hr Insulin Aspart (Novolog) 0 unit SUBCUT ACBED [facility]; Protocol Lorazepam (Ativan) 0 mg IVPUSH Q4H PRN; Protocol PRN Reason: anxiety , agitation Thiamine HCl (Vitamin B-1) 100 mg PO BEDTIME [facility] Last Admin: 10/18/17 22:00 Dose: 100 mg Vancomycin HCl (Pharmacy To Dose - Vancomycin) 0 dose .XX ASDIRECTED [facility] Discontinued Medications Diphtheria/Tetanus/Acell Pertussis (Adacel) 0.5 ml IM .ONCE ONE Stop: 10/17/17 14:32 Last Admin: 10/17/17 17:52 Dose: 0.5 ml Clindamycin Phosphate 300 mg/ (Sodium Chloride) 52 mls @ 100 mls/hr IV ONETIME ONE Stop: 10/17/17 10:48 Last Admin: 10/17/17 10:50 Dose: Not Given Vancomycin HCl 1 gm/ Sodium (Chloride) 250 mls @ 250 mls/hr IV ONETIME ONE Stop: 10/17/17 11:16 Last Admin: 10/17/17 10:41 Dose: 250 mls/hr Sodium Chloride (Normal Saline) 1,000 mls @ 125 mls/hr IV STAT [facility] Last Infusion: 10/19/17 02:50 Dose: Infused Clindamycin Phosphate 300 mg/ (Dextrose/Water) 52 mls @ 100 mls/hr IV ONETIME ONE Stop: 10/17/17 10:48 Last Admin: 10/17/17 11:50 Dose: 100 mls/hr Clindamycin Phosphate (Cleocin In D5w) Confirm Administered Dose 50 mls @ as directed IV .STK-MED ONE Stop: 10/17/17 10:25 Last Admin: 10/17/17 10:50 Dose: Not Given Sodium Chloride (Normal Saline) Confirm Administered Dose 100 mls @ as directed .ROUTE .STK-MED ONE Stop: 10/19/17 01:18 Last Admin: 10/19/17 02:19 Dose: Not Given
--- NOTE | 2017-10-20 09:06 | US ---
EXAM DATE: 10/17/17 PATIENT'S AGE: 51 Patient: TONI THOMPSON Facility: [place], [place] Site . Site : [id number] Study: US Abdomen [id number]/17/2018 4:03:17 PM Ordering Physician: Phyllis Gaxiola Final Report: INDICATION: Abdominal distension, alcohol abuse. ABDOMEN ULTRASOUND Technique: Multiple sonographic images of the upper abdomen were performed. Findings: The exam is markedly limited due to patient body habitus and bowel gas. The liver is poorly visualized but shows increased echogenicity suggesting fatty infiltration. The gallbladder, common bile duct, and pancreas are obscured. The right kidney is very poorly visualized and shows no obvious abnormality. The left kidney shows no definite mass or hydronephrosis. The spleen does not appear enlarged. IMPRESSION: 1. Markedly limited exam as noted above. 2. Probable fatty infiltration of the liver. ANIRUDH EVANGELISTA MD [employer] Dictated by Ramana Evangelista MD @ 10/17/2017 7:51:07 PM Dictated by: Ramana Evangelista MD @ 10/17/2017 19:51:31 (Electronic Signature) Report Signed by Proxy. [facility]
== END 2017-10-19 14:15 | disposition home or self-care (01) | DRG 603 ==
LOC: MW.ED 09:05 → MW.MS 10:23
PROVIDERS: ADMIT Internal Medicine; ATTEND Internal Medicine
PROC: 3E0234Z Introduction of Serum, Toxoid and Vaccine into Muscle, Percutaneous Approach (ICD-10-PCS; principal; 2017-10-18)
DX: L03.116 Cellulitis of left lower limb (principal); Z68.42 Body mass index [BMI] 45.0-49.9, adult; W22.8XXA Striking against or struck by other objects, initial encounter; Y92.89 Other specified places as the place of occurrence of the external cause; Y99.0 Civilian activity done for income or pay; S80.812A Abrasion, left lower leg, initial encounter; F10.10 Alcohol abuse, uncomplicated; R14.0 Abdominal distension (gaseous); K42.9 Umbilical hernia without obstruction or gangrene; E66.01 Morbid (severe) obesity due to excess calories; E11.9 Type 2 diabetes mellitus without complications; K76.0 Fatty (change of) liver, not elsewhere classified; I10 Essential (primary) hypertension; Z23 Encounter for immunization
CPT/HCPCS: 36415; 73590-26-LT; 73590-LT; 76700; 76700-26; 80048; 80053; 82962; 83036; 83880; 85025; 85027; 85610; 87040; 90471; 90715; 93971-26-LT; 93971-LT; 99282; A9270-GY; J2543; J3370; J3490; J7030; J7040; J7050; J7060

== ENCOUNTER 2023-09-12 15:52 | Emergency (ER) | payer BC, MEDICAID ==
[2023-09-12] MEDS: Ibuprofen 600 MG Tab PO ONE (16:35)
== END 2023-09-12 17:55 | disposition home or self-care (01) ==
LOC: MW.ED 15:52
DX: S93.402A Sprain of unspecified ligament of left ankle, initial encounter (principal); Z75.8 Other problems related to medical facilities and other health care; X58.XXXA Exposure to other specified factors, initial encounter
CPT/HCPCS: 73610; 73630; 99283; A9270